=== PATIENT | female | born 1980 | race Caucasian/White ===

== ENCOUNTER 2017-10-10 01:51 | Emergency (ER) | payer OTHER ==
[~2017-10-10] VITALS: Ht 180.3 cm; Wt 72.6 kg
[~2017-10-10 01:51] MED LIST: BACTRIM DS TAB1 EACH PO; IBUPROFEN 600600 M1 PO; TRAZODONE 150150 M1 PO; WELLBUTRIN XL300 MG PO
[2017-10-10] MEDS ORDERED: HYDROCODONE-AP1 EAC6 PO (04:56)
[2017-10-10 05:10] VITALS: BP 143/95
== END 2017-10-10 05:12 | disposition home or self-care (01) ==
LOC: ER 01:51
DX: S62.101A Fracture of unspecified carpal bone, right wrist, initial encounter for closed fracture (principal); W19.XXXA Unspecified fall, initial encounter; Y93.89 Activity, other specified; Y92.89 Other specified places as the place of occurrence of the external cause; Y99.8 Other external cause status; F41.9 Anxiety disorder, unspecified; F32.9 Major depressive disorder, single episode, unspecified; F17.210 Nicotine dependence, cigarettes, uncomplicated